=== PATIENT | male | born 1960 | race Caucasian/White ===

== ENCOUNTER 2016-10-14 12:25 | Day surgery (SDC) | payer BC ==
[~2016-10-14] VITALS: Ht 182.9 cm; Wt 80.9 kg
[~2016-10-14 12:25] MED LIST: CARDI-OMEGA1000 MG PO; MULTIPLE VITAMI1 CAP PO; OSTEO-BI-FLEX 21 TAB PO
[2016-10-14 12:55] VITALS: BP 126/81; PULSE 67; TEMP 97.8
[2016-10-14 15:00] VITALS: BP 116/63; PULSE 60; TEMP 97.7
[2016-10-14 15:15] VITALS: BP 119/85; PULSE 58
[2016-10-14 15:30] VITALS: BP 123/74; PULSE 56
[2016-10-14 16:28] VITALS: BP 104/74; PULSE 58
== END 2016-10-14 16:00 | disposition home or self-care (01) ==
LOC: SDCO 12:25
DX: Z12.11 Encounter for screening for malignant neoplasm of colon (principal); Z86.010 Personal history of colon polyps; K63.5 Polyp of colon
CPT/HCPCS: OP; J2250; J3010; J7030

== ENCOUNTER 2022-08-08 06:58 | Day surgery (SDC) | payer BC ==
[~2022-08-08] VITALS: Ht 185.4 cm; Wt 75.0 kg
[2022-08-08] VITALS (7 sets, daily range): BP systolic 112–132; BP diastolic 69–79; PULSE 59–65; TEMP 97.5–98.2
[2022-08-08] MEDS ORDERED: NORCO 325 MG-51 TAB PO (10:34)
--- NOTE | 2022-08-08 11:05 | NUR ---
PT TO BAY 7 PER CART FROM PACU. RECEIVED REPORT. VS OBTAINED. CALL LIGHT WITHIN REACH. PT DENIES ANY NEEDS AT THIS TIME.
--- NOTE | 2022-08-08 11:50 | NUR ---
PT TOLERATING MUFFINS, PUDDING, AND WATER. PT DENIES ANY DISCOMFORT AT THIS TIME.
--- NOTE | 2022-08-08 13:05 | NUR ---
1240-IV DC'D AT THIS TIME. 1255-DISCHARGE EDUCATION COMPLETED WITH PT AND HIS . VERBALIZED UNDERSTANDING OF HOME AND FOLLOW UP CARE. ALL QUESTIONS ANSWERED. DISCHARGE PAPERWORK GIVEN TO PT. 1305-PT OFF UNIT PER WHEELCHAIR. PT DISCHARGED TO HOME WITH PER PERSONAL VEHICLE.
== END 2022-08-08 13:05 | disposition home or self-care (01) ==
LOC: SDCO 06:58
DX: K40.91 Unilateral inguinal hernia, without obstruction or gangrene, recurrent (principal)
CPT/HCPCS: C1781; J0330; J1100; J1885; J2250; J2405; J2704; J3010; J7120